=== PATIENT | male | born 1975 | race Caucasian/White ===

== ENCOUNTER 2019-05-31 07:56 | Emergency (ER) | payer SELFPAY ==
[2019-05-31] MEDS: HYDROCODONE/APAP (5/325) TAB PO (08:58)
[2019-05-31] MEDS: DIPHTH/TET/ACEL PERTUSS (ADULT) 0.5 ML VIAL IM* (08:59)
[2019-05-31] MEDS: CEFAZOLIN 2 GM/50 ML (PMX) 50 ML IVPB (10:03)
[2019-05-31] MEDS: LIDOCAINE 2% (MDV) 20 ML INJ INJ (11:02)
[2019-05-31] MEDS ORDERED: ONDANSETRON 4 MG INJ (11:13)
[2019-05-31] MEDS ORDERED: morphine 4 MG/ML VIAL (11:13)
[2019-05-31] MEDS: ONDANSETRON 4 MG INJ IV (11:33)
[2019-05-31] MEDS: morphine 4 MG/ML VIAL IV (11:34)
== END 2019-05-31 12:44 | disposition short-term general hospital (02) ==
LOC: FTE 07:56
DX: S52.325 Nondisplaced transverse fracture of shaft of left radius (principal); S31.119A Laceration without foreign body of abdominal wall, unspecified quadrant without penetration into peritoneal cavity, initial encounter; S54.11XA Injury of median nerve at forearm level, right arm, initial encounter; Y08.89XA Assault by other specified means, initial encounter; Z23 Encounter for immunization
CPT/HCPCS: 12002; 73090-RT; 90471; 90715; 96365; 96375; 99285-25